=== PATIENT | male | born 1990 | race Hispanic/Latino ===

== ENCOUNTER 2021-02-24 17:59 | Emergency (ER) | payer SELFPAY ==
[2021-02-24] MEDS ORDERED: Acetaminophen 500 MG TAB ONE (18:31)
[2021-02-24] MEDS ORDERED: Ibuprofen 200 MG TAB ONE (18:31)
== END 2021-02-24 19:21 | disposition home or self-care (01) ==
LOC: CSHERS 17:59
DX: M77.8 Other enthesopathies, not elsewhere classified (principal); F17.210 Nicotine dependence, cigarettes, uncomplicated